=== PATIENT | female | born 1970 | race Asian ===

== ENCOUNTER → 2016-07-09 | Outpatient (CLI) | payer BC ==
[~2016-07-09] MED LIST: LANS15CA6 PO; LANS30CA12 PO
[2016-07-09 16:47] LABS: BASO % 0.8 %; BASO ABS # 0.04 K/uL (0-0.2); COMPLETE YES; EOS % 3.2 %; HEMATOCRIT 36.1 % (37-47); IG% 0.2 %; LYMPH ABS # 1.48 K/uL (1.2-3.4); MEAN CELL VOLUME 93.5 fL (80-100); MEAN CORPUSCULAR HEMOGLOBIN 31.6 pg (25-34); MEAN CORPUSCULAR HGB CONC 33.8 g/dl (32-36); MEAN PLATELET VOLUME 10.6 fL (7.4-10.4); MONO % 4.3 %; NEUT % 61.5 %; PLATELET COUNT 173 K/uL (130-400); RED BLOOD COUNT 3.86 M/uL (4.2-5.4); WHITE BLOOD COUNT 4.93 K/uL (4.8-10.8)
[2016-07-09 16:57] LABS: ALT/SGPT 34 U/L (12-78); AMYLASE 132 U/L (25-115); AST/SGOT 24 U/L (15-37); BLOOD UREA NITROGEN 15 mg/dl (7-18); BUN/CREATININE RATIO 22.3 (10-20); CALCIUM 8.8 mg/dl (8.5-10.1); CARBON DIOXIDE 30 mmol/L (21-32); CHLORIDE 105 mmol/L (98-107); CREATININE 0.67 mg/dl (0.60-1.20); GLUCOSE 90 mg/dl (70-99); POTASSIUM 3.9 mmol/L (3.5-5.1); SODIUM 143 mmol/L (136-145)
[2016-07-09 17:00] LABS: ALB/GLOB RATIO 1.3 (0.9-2); ALKALINE PHOSPHATASE 85 U/L (45-117)
== END | disposition home or self-care (01) ==
LOC: C.LABBC 14:24
PROVIDERS: ATTEND Internal Medicine Geriatric Medicine
DX: R10.11 Right upper quadrant pain (principal)

== ENCOUNTER → 2016-09-05 | Outpatient (CLI) | payer BC ==
[2016-09-05 15:00] LABS: CHOLESTEROL/HDL RATIO 2.1
== END | disposition home or self-care (01) ==
LOC: C.LABBC 12:01
PROVIDERS: ATTEND Internal Medicine
DX: Z13.220 Encounter for screening for lipoid disorders (principal)

== ENCOUNTER → 2016-09-06 | Outpatient (CLI) | payer BC ==
[2016-09-06 15:59] LABS: URINE APPEARANCE CLEAR (CLEAR); URINE BILIRUBIN NEG (NEG); URINE COLOR YELLOW; URINE NITRITE NEG (NEG); URINE PH 6.5 (4.5-7.5); URINE SPECIFIC GRAVITY 1.005 (1.000-1.030); UROBILINOGEN NEG (NEG)
[2016-09-06 16:21] LABS: MANUAL MICROSCOPIC REQUIRED? NO; REVIEW REQ? NO
== END | disposition home or self-care (01) ==
LOC: C.LABSPEC 15:32
PROVIDERS: ATTEND Physician Assistant
DX: R35.0 Frequency of micturition (principal); N89.8 Other specified noninflammatory disorders of vagina

== ENCOUNTER → 2016-09-06 | Outpatient (CLI) | payer BC | END | disposition home or self-care (01) | LOC: C.PAPS 09:55 | PROVIDERS: ATTEND Physician Assistant | DX: Z01.419 Encounter for gynecological examination (general) (routine) without abnormal findings (principal) ==

== ENCOUNTER → 2016-10-02 | Outpatient (CLI) | payer BC ==
[~2016-10-02] MED LIST changes: -LANS30CA12 PO
[2016-10-02 14:49] LABS: BASO % 0.6 %; BASO ABS # 0.02 K/uL (0-0.2); COMPLETE YES; EOS % 3.4 %; HEMATOCRIT 34.8 % (37-47); LYMPH % 31.2 %; LYMPH ABS # 1.11 K/uL (1.2-3.4); MEAN CELL VOLUME 94.8 fL (80-100); MEAN CORPUSCULAR HEMOGLOBIN 31.1 pg (25-34); MEAN CORPUSCULAR HGB CONC 32.8 g/dl (32-36); MEAN PLATELET VOLUME 10.9 fL (7.4-10.4); MONO % 5.9 %; NEUT % 58.9 %; PLATELET COUNT 150 K/uL (130-400); RED BLOOD COUNT 3.67 M/uL (4.2-5.4); WHITE BLOOD COUNT 3.56 K/uL (4.8-10.8)
== END | disposition home or self-care (01) ==
LOC: C.LAB1850 12:36
PROVIDERS: ATTEND Obstetrics & Gynecology
DX: Z01.818 Encounter for other preprocedural examination (principal)

== ENCOUNTER → 2016-10-07 | Day surgery (SDC) | payer BC ==
[2016-09-27 11:08] VITALS: BMI 17.0
[~2016-10-07] VITALS: Ht 157.5 cm; Wt 42.3 kg
[~2016-10-07] MED LIST changes: +LIDOCAINE HCL 2% 2 ML VIAL (20MG/ML) ONE; +MIDAZOLAM HCL 1 MG/ML 2ML VIAL ONE; +ONDANSETRON INJ 2 MG/ML 2 ML VIAL ONE; +PROPOFOL IV EMULSION 10 MG/ML 20 ML VIAL IV ONE; +SODIUM CHLORIDE 0.9% 500ML 500 ML IV ONE
[2016-10-07 09:56] VITALS: TEMP 36.7
[2016-10-07 09:57] VITALS: Ht 157.5 cm; Wt 42.3 kg
--- NOTE | 2016-10-07 10:50 | Endo History and Physical ---
History & Physical Date of Service: Oct 07, 2016. Chief Complaint: ABNORMAL WEIGHT LOSS Referring Physician: DR ROSENDO DELVALLE History of Present Illness 46 yo female who presents for colonoscopy secondary to abnormal weight loss. Past Medical History Reflux Past Surgical History Hx Cardiac Surgery: No Hx Internal Defibrillator: No Hx Pacemaker: No Hx Abdominal Surgery: No Hx of Implantable Prosthesis: No Hx Post-Op Nausea and Vomiting: No Hx Cancer Surgery: No Hx Thoracic Surgery: No Hx Orthopedic: No Hx Urinary Tract Surgery: No Family History None Social History Smoking Status: Never Smoker Hx Substance Use: No Hx Alcohol Use: No Allergies Coded Allergies: Penicillin G (Verified Allergy, Unknown, "BLACK PART OF EYE WENT AWAY" PER MOTHER, 09/27/16) Current Medications Reported Home Medications Medications Dose Route/Sig Max Daily Dose Days Date Category Prevacid (Lansoprazole) 15 Mg Capcr 15 Mg PO QAM 09/18/16 Reported Vital Signs Weight (Kilograms): 42.27 Height (Feet): 5 Height (Inches): 2 Date Time Temp Pulse Resp B/P Pulse Ox O2 Delivery O2 Flow Rate FiO2 10/07/16 09:56 36.7 62 18 111/67 95 Room Air Physical Exam General Appearance: WD/WN, no apparent distress Respiratory/Chest: Auscultation: breath sounds normal Cardiovascular: Heart Auscultation: RRR Abdomen: Bowel Sounds: normal Inspection & Palpation: soft, non-distended, no tenderness, guarding & rebound Assessment and Plan Assessment: 46 yo female who presents for colonoscopy secondary to abnormal weight loss. Plan: Proceed with colonoscopy.
--- NOTE | 2016-10-07 11:13 | Discharge Instructions ---
Endoscopy Patient Instructions Date / Procedure(s) Performed Oct 07, 2016. Colonoscopy Allergy Information Coded Allergies: Penicillin G (Verified Allergy, Unknown, "BLACK PART OF EYE WENT AWAY" PER MOTHER, 09/27/16) Discharge Date / Findings Oct 07, 2016. Colon polyp Random colon biopsies Internal hemorrhoids Medication Instructions OK to resume all medications today as prescribed Reported Home Medications Medications Dose Route/Sig Max Daily Dose Days Date Category Prevacid (Lansoprazole) 15 Mg Capcr 15 Mg PO QAM 09/18/16 Reported Provider Instructions Activity Restrictions - No exercising or heavy lifting for 24 hours. - Do not drink alcohol the day of the procedure. - Do not drive a car or operate machinery until the day after the procedure. - Do not make any important decisions or sign important papers in 24 hours after the procedure. Following Day: - Return to full activity which may include returning to work/school. Diet Start your diet with liquids and light foods (jello, soup, juice, toast). Then eat your usual diet if not nauseated. Treatment For Common After Affects For mild abdominal pain, bloating, or excessive gas: - Rest - Eat lightly - Lie on right side Follow-Up Information Follow-up with DR ROSENDO DELVALLE as scheduled Anesthesia Information What You Should Know You have had a procedure that required some medicine to reduce anxiety and discomfort. This treatment is called moderate sedation. After receiving the treatment, you may be sleepy, but you will be able to breathe on your own. The effects of the treatment may last for several hours. Follow these instructions along with Activity/Diet recommendations noted above: * Do NOT do anything where dizziness or clumsiness would be dangerous. * Rest quietly at home today, then you can be up and about tomorrow. * Have a responsible person stay with you the rest of today. * You may have had an I.V. today. If so, you may take the dressing off later today. Recommendations Call your doctor if: * Trouble breathing * Continuous vomiting for more than 24 hours * Temperature above 101 degrees * Severe abdominal pain or bloating * Pain not relieved by pain medicine ordered * There is increased drainage or redness from any incision * A large amount of rectal bleeding greater than 2-3 tablespoons. (If you had a polyp/s removed or have hemorrhoids, a small amount of blood - from the rectum is to be expected.) * You have any unanswered questions or concerns. IN THE EVENT OF A SERIOUS EMERGENCY, GO TO THE NEAREST EMERGENCY ROOM Your discharge instructions were prepared by provider Antelmo Salinas. Patient Instructions Signature Page Sammie Palencia Patient (or Guardian) Signature/Date: I have read and understand the instructions given to me by my caregivers. Caregiver/RN/Doctor Signature/Date: The above-named patient and/or guardian has received patient instructions on this date. + Original Patient Signature Page (only) stays with chart. Please make copy for patient.
--- NOTE | 2016-10-07 11:23 | GI REPORT ---
Procedure Date: 10/07/2016 9:55 AM THIS REPORT HAS BEEN AMENDED Addendum Number: 1 Addendum Date: 10/07/2016 12:07:23 PM The ascending colon polyp removed during this procedure, was not obtained for histologic evaluation. Procedure: Colonoscopy Indications: Weight loss Medicines: Monitored Anesthesia Care Complications: No immediate complications. Estimated Blood Loss: Estimated blood loss: none. Procedure: Pre-Anesthesia Assessment: - Prior to the procedure, a History and Physical was performed, and patient medications and allergies were reviewed. The patient's tolerance of previous anesthesia was also reviewed. The risks and benefits of the procedure and the sedation options and risks were discussed with the patient. All questions were answered, and informed consent was obtained. Prior Anticoagulants: The patient has taken no previous anticoagulant or antiplatelet agents. ASA Grade Assessment: II - A patient with mild systemic disease. After reviewing the risks and benefits, the patient was deemed in satisfactory condition to undergo the procedure. After I obtained informed consent, the scope was passed under direct vision. Throughout the procedure, the patient's blood pressure, pulse, and oxygen saturations were monitored continuously. The scope was introduced through the anus and advanced to the terminal ileum. The colonoscopy was performed without difficulty. The patient tolerated the procedure well. The quality of the bowel preparation was good. The terminal ileum, ileocecal valve, appendiceal orifice, and rectum were photographed. Findings: A 5 mm polyp was found in the ascending colon. The polyp was sessile. The polyp was removed with a hot snare. Resection and retrieval were complete. Several random biopsies were obtained with cold forceps for histology in the entire colon. Non-bleeding internal hemorrhoids were found during retroflexion. The hemorrhoids were small. Impression: - One 5 mm polyp in the ascending colon, removed with a hot snare. Resected and retrieved. - Non-bleeding internal hemorrhoids. - Several random biopsies were obtained in the entire colon. Recommendation: - Resume previous diet. - Continue present medications. - Repeat colonoscopy for surveillance based on pathology results. - Return to primary care physician as previously scheduled. Antelmo Pfefifer BradDO 10/07/2016 11:22:15 AM This report has been signed electronically. Note Initiated On: 10/07/2016 9:55 AM I attest to the content of the Intraoperative Record and orders documented therein, exceptions below Antelmo Salinas DO 10/07/2016 12:07:51 PM This report has been signed electronically.
--- NOTE | 2016-10-07 11:35 | Anesthesiology Progress Note ---
Anesthesia Post Op Note Date & Time Oct 07, 2016 at 11:34 Vital Signs Pain Intensity: 0 Vital Signs Past 12 Hours Date Time Temp Pulse Resp B/P Pulse Ox O2 Delivery O2 Flow Rate FiO2 10/07/16 11:28 70 18 99/58 99 Room Air 10/07/16 11:15 64 16 98/53 100 Room Air 10/07/16 09:56 36.7 62 18 111/67 95 Room Air Notes Mental Status: alert / awake / arousable, participated in evaluation Pt Amnestic to Procedure: Yes Nausea / Vomiting: adequately controlled Pain: adequately controlled Airway Patency, RR, SpO2: stable & adequate BP & HR: stable & adequate Hydration State: stable & adequate Anesthetic Complications: no major complications apparent
[2016-10-07 11:43] VITALS: BP 104/58; PULSE 67; O2SAT 100
== END | disposition home or self-care (01) ==
LOC: C.GI 09:24
PROVIDERS: ATTEND Internal Medicine
DX: R63.4 Abnormal weight loss (principal); D12.2 Benign neoplasm of ascending colon; K64.8 Other hemorrhoids; K21.9 Gastro-esophageal reflux disease without esophagitis

== ENCOUNTER → 2016-10-14 | Day surgery (SDC) | payer BC ==
[2016-09-18 09:53] VITALS: Ht 157.5 cm; Wt 43.2 kg
--- NOTE | 2016-10-05 11:07 | HISTORY & PHYSICAL EXAMINATION ---
DATE OF ADMISSION: 10/14/2016 CHIEF COMPLAINT: Embedded IUD. HISTORY OF PRESENT ILLNESS: The patient is a 46-year-old female, 2, para 2, with an IUD in place. The patient is believed to have a ParaGard IUD in place since 2007. She is perimenopausal with her last period having been 12/2015. She was seen for an annual [employer] exam on 09/06/2016 and the lower pole of the IUD visible at the cervical os. Strings were grasped and an attempt was made to remove the IUD. It was not possible to remove it. Ultrasound was then performed and this showed that at least 1 arm of the IUD appears to be embedded in the anterior wall of the uterus. The patient is now for removal of the IUD by hysteroscopy. PAST MEDICAL HISTORY: ALLERGIES: TO PENICILLIN. MEDICATIONS: The patient takes lansoprazole 15 mg daily. ILLNESSES: The patient does have GERD. She also has eczema and suffers with anxiety. PAST MEDICAL HISTORY: She has a history of iron deficiency anemia. Also a history of irritable bowel syndrome. SURGERIES: She has had a needle biopsy of her breast. FAMILY HISTORY: Her mother has a history of breast cancer and hypertension. Her sister has also had breast cancer. SOCIAL HISTORY: The patient is . She denies smoking cigarettes or drinking alcohol. PHYSICAL EXAMINATION: VITAL SIGNS: Height 5 feet 1-1/2 inches, weight 91.3 pounds, blood pressure 98/62. HEENT: Grossly within normal limits. NECK: Supple without masses. CHEST: Her lungs are clear without wheezing. HEART: Regular rate and rhythm. No murmurs, gallops or rubs. ABDOMEN: Soft and nontender with no masses. PELVIC: External genitalia normal. Vagina pink and stimulated. Cervix: IUD strings were noted at the os. Uterus within normal limit size, nontender. Adnexa nontender with no masses palpable. EXTREMITIES: No cyanosis, clubbing or edema. IMPRESSION: Malpositioned intrauterine device. Cannot remove the device in the office. PLAN: The patient is for hysteroscopy, dilation of the cervix and curettage, with possible removal of polyp/lesion and removal of IUD. The patient is aware of the risks of infection, bleeding, perforation of the uterus which might require additional surgery or treatment, as well as hospitalization and risk of anesthesia. The patient is aware of the risk of possible breakage of the IUD with the attempt at removal. Also aware that additional surgery might be necessary to remove the IUD. MTDD
[~2016-10-14] VITALS: Ht 157.5 cm; Wt 43.2 kg
[~2016-10-14] MED LIST changes: +ATROPINE SULFATE 0.1 MG/ML 5ML SYR IV PRN; +DEXAMETHASONE SOD INJ 4 MG/ML VIAL ONE; +EpHEDrine SULFATE INJ 50 MG/ML AMP IV PRN; +EpHEDrine SULFATE INJ 50 MG/ML AMP ONE; +FENTANYL CITRATE INJ 50 MCG/1 ML 2 ML VIAL IV PRN; +FENTANYL CITRATE INJ 50 MCG/1 ML 2 ML VIAL ONE; +IBUPROFEN 600 MG TAB PO PRN; +LACTATED RINGER'S 1000ML 1,000 ML IV SCH; +NALOXONE HCL 0.4 MG/1 ML VIAL/CARP IV PRN; +ONDANSETRON INJ 2 MG/ML 2 ML VIAL IV PRN; +PROMETHAZINE HCL INJ 12.5 MG in SODIUM CHLORIDE 0.9% 50ML 50 ML IV PRN; +SODIUM CHLORIDE 0.9% 1000ML 1,000 ML IV SCH; -SODIUM CHLORIDE 0.9% 500ML 500 ML IV ONE
--- NOTE | 2016-10-14 08:54 | History & Physical Bridge - SC ---
H&P Re-Evaluation Bridge Note: I have examined the patient, reviewed the History & Physical and in the interval since the performance of the History & Physical I have noted the following changes of clinical significance: No changes noted
--- NOTE | 2016-10-14 09:48 | [facility] Post Operative Brief Note ---
Immediate Operative Summary Operative Date October 14, 2016. Pre-Operative Diagnosis Malpositioned IUD Post-Operative Diagnosis Embedded Paragard IUD Procedure(s) Performed Dilatation, Hysteroscopy, Removal Of Intra Uterine Device Surgeon Dr. Laurent Rod Puller Surgeon(s) None Estimated Blood Loss 25 ml Findings See dictated note. Specimens A.) Embedded IUD Complication(s) None Disposition Recovery Room / PACU
--- NOTE | 2016-10-14 09:59 | Discharge Instructions-SurgCtr ---
Discharge Instructions Date of Service October 14, 2016. Visit Reason for Visit: Malpositioned Iud Discharge Discharge Diagnosis / Problem: S/P Hysteroscopy, dilation of cervix and removal of embedded Paragard IUD Discharge Goals Goal(s): Therapeutic intervention Activity Recommendations Activity Limitations: per Instructions/Follow-up section Anesthesia . Post Anesthesia Instructions: If you have had General Anesthesia or IV Sedation: * Do not drive today. * Resume driving when surgeon permits. * Do not make important decisions or sign legal documents today. * Call surgeon for: 1. Temperature elevations greater than 101 degrees F. 2. Uncontrollable pain. 3. Excessive bleeding. 4. Persistent nausea and vomiting. 5. Medication intolerance (nausea, vomiting or rash). * For nausea and vomiting use only clear liquids such as: tea, soda, bouillon until nausea subsides, then gradually increase diet as tolerated. * If you have any concerns or questions, call your surgeon's office. If physician is unavailable and it is an emergency, call 911 or go to the nearest emergency room. . Instructions / Follow-Up Instructions / Follow-Up ACTIVITY RECOMMENDATIONS: * Avoid tampons, douching, hot tubs, pools, and intercourse until bleeding has stopped. * May shower as usual. * No strenuous activity for 24-48 hours. After 24-48 hours, you may do anything you feel like doing (driving and sports are okay). SPECIAL CARE INSTRUCTIONS: Special Diet: * Mild nausea may occur in the immediate post-operative period. * Take clear liquids such as tea, cola or bouillon until all nausea has subsided; you may then resume your normal diet. Special Care: * Light bleeding and vaginal spotting can last from a few days to 2 weeks. Call your doctor if bleeding becomes heavier than the heaviest part of your period. * Check your temperature twice a day for one week. If it goes above 100.4 degrees Fahrenheit (38.0 Celsius), notify your doctor. Call if you have persistent severe cramping or develop a foul vaginal discharge. * Call your doctor's office for an appointment for 2-4 weeks after your surgery. [phone] Laurent. FOLLOW-UP VISIT: Call your doctor's office for an appointment for 2-4 weeks after your surgery. Diet Recommendations Home Diet: resume previous diet Procedures Procedures Performed: Dilatation, Hysteroscopy, Removal Of Intra Uterine Device Pending Studies Studies pending at discharge: yes List of pending studies: The IUD was sent to pathology. Medical Emergencies . Who to Call and When: Medical Emergencies: If at any time you feel your situation is an emergency, please call 911 immediately. . Non-Emergent Contact Non-Emergency issues call your: Medicine And Health Service Manager Call Non-Emergent contact if: temperature is above 100.5 . . "Provider Documentation" section prepared by Anika Laurent. .
--- NOTE | 2016-10-14 10:16 | OPERATIVE REPORT ---
DATE OF OPERATION: 10/14/2016 PREOPERATIVE DIAGNOSIS: Malpositioned intrauterine device. POSTOPERATIVE DIAGNOSIS: Embedded ParaGard intrauterine device. PROCEDURES: Dilation of the cervix, hysteroscopy and removal of intrauterine device. SURGEON: Dr. Anika Laurent. ANESTHESIA: General. CONSTRUCTION LABORER: Butch Paredes MD DESCRIPTION OF PROCEDURE: The patient was taken to the operating room, where general anesthesia was administered. After an adequate level was obtained, she was placed in dorsal lithotomy position. Vulva, vagina, and cervix were prepped with Betadine solution. The patient was draped. A Sanchez retractor was placed in the posterior fornix of the vagina. The anterior lip of the cervix was grasped with a single tooth tenaculum. It should be noted that the uterus was normal size, midline to retroverted. The lower pole of the IUD was visible and palpable at the cervical os. IUD strings were grasped with a hemostat. Gentle traction was placed on the strings and the IUD could not be removed. The cervix was then serially dilated up to approximately 23. Hysteroscope was then used to visualize the position of the IUD. Photos were taken. The shaft of the IUD was in the cervical and endometrial canal as usual. One arm of the IUD was noted to be in position in the left upper portion of the endometrial cavity. It was not possible to see the right arm of the IUD as it was embedded in the anterior wall of the uterus. The entire arm appeared to be embedded. A small hemostat was then used after the hysteroscope was removed. It was possible to grasp the mid and upper portion of the IUD with it. The IUD was removed, but only the shaft of the IUD. The arm of the IUD that was in the left side of the endometrial cavity was then removed. A small portion of the remaining arm was visible protruding from the anterior wall of the uterus. With the grasper through the small operative scope, it was possible for me to grasp the embedded arm of the IUD and pull it out of the myometrium into the endometrial cavity and then out of the uterus. Afterwards, the pieces of the IUD were examined and it appeared that the entire IUD had been successfully removed. The pieces of IUD will be sent to pathology. Blood loss for the entire procedure was no more than 25 mL. The patient tolerated the procedure well and was taken to the recovery room in good condition. I attest to the content of the Intraoperative Record and any orders documented therein. Any exceptions are noted below. YAIR
--- NOTE | 2016-10-14 11:02 | Anesthesia Progress Nt - [facility] ---
Anesthesia Post Op Note Date & Time October 14, 2016 at 11:01 Vital Signs Pain Intensity: 0 Vital Signs Past 12 Hours Date Time Temp Pulse Resp B/P Pulse Ox O2 Delivery O2 Flow Rate FiO2 10/14/16 10:47 47 14 100 10/14/16 10:47 47 14 10/14/16 10:45 117/76 10/14/16 10:42 36.6 50 16 122/75 100 Room Air 10/14/16 10:42 46 15 100 10/14/16 10:42 46 15 10/14/16 10:41 52 16 100 10/14/16 10:41 51 16 10/14/16 10:40 122/75 10/14/16 10:36 48 15 100 10/14/16 10:36 48 15 10/14/16 10:35 128/79 10/14/16 10:31 46 15 10/14/16 10:31 46 15 100 10/14/16 10:30 133/76 10/14/16 10:27 47 16 100 10/14/16 10:27 47 16 10/14/16 10:25 109/72 10/14/16 10:22 47 14 10/14/16 10:22 47 14 100 10/14/16 10:20 124/74 10/14/16 10:17 49 17 100 10/14/16 10:17 49 17 10/14/16 10:16 47 14 10/14/16 10:16 47 14 100 10/14/16 10:15 132/77 10/14/16 10:11 49 14 100 10/14/16 10:11 48 14 10/14/16 10:10 124/81 10/14/16 10:06 48 13 100 10/14/16 10:06 48 13 10/14/16 10:05 117/79 10/14/16 10:01 49 14 100 10/14/16 10:01 49 14 10/14/16 10:00 127/75 10/14/16 09:56 52 17 127/77 100 10/14/16 09:56 36.6 54 12 127/77 100 Diffusion Mask 15 10/14/16 09:56 52 17 10/14/16 08:11 36.4 58 16 101/66 100 Room Air Notes Mental Status: alert / awake / arousable, participated in evaluation Pt Amnestic to Procedure: Yes Nausea / Vomiting: adequately controlled Pain: adequately controlled Airway Patency, RR, SpO2: stable & adequate BP & HR: stable & adequate Hydration State: stable & adequate Anesthetic Complications: no major complications apparent
[2016-10-14 11:10] VITALS: TEMP 36.4
[2016-10-14 11:26] VITALS: BP 109/66; PULSE 51; O2SAT 100
== END | disposition home or self-care (01) ==
LOC: X.SURG 08:01
PROVIDERS: ATTEND Obstetrics & Gynecology
DX: Z30.432 Encounter for removal of intrauterine contraceptive device (principal); K21.9 Gastro-esophageal reflux disease without esophagitis; D64.9 Anemia, unspecified; Z85.3 Personal history of malignant neoplasm of breast; Z82.49 Family history of ischemic heart disease and other diseases of the circulatory system

== ENCOUNTER 2017-02-06 22:22 | Emergency (ER) | payer BC ==
[~2017-02-06] VITALS: Ht 160 cm; Wt 43.9 kg
[~2017-02-06 22:22] MED LIST changes: -ATROPINE SULFATE 0.1 MG/ML 5ML SYR IV PRN; -DEXAMETHASONE SOD INJ 4 MG/ML VIAL ONE; -EpHEDrine SULFATE INJ 50 MG/ML AMP IV PRN; -EpHEDrine SULFATE INJ 50 MG/ML AMP ONE; -FENTANYL CITRATE INJ 50 MCG/1 ML 2 ML VIAL IV PRN; -FENTANYL CITRATE INJ 50 MCG/1 ML 2 ML VIAL ONE; -IBUPROFEN 600 MG TAB PO PRN; -LACTATED RINGER'S 1000ML 1,000 ML IV SCH; -LIDOCAINE HCL 2% 2 ML VIAL (20MG/ML) ONE; -MIDAZOLAM HCL 1 MG/ML 2ML VIAL ONE; -NALOXONE HCL 0.4 MG/1 ML VIAL/CARP IV PRN; -ONDANSETRON INJ 2 MG/ML 2 ML VIAL IV PRN; -ONDANSETRON INJ 2 MG/ML 2 ML VIAL ONE; -PROMETHAZINE HCL INJ 12.5 MG in SODIUM CHLORIDE 0.9% 50ML 50 ML IV PRN; -PROPOFOL IV EMULSION 10 MG/ML 20 ML VIAL IV ONE; -SODIUM CHLORIDE 0.9% 1000ML 1,000 ML IV SCH
[2017-02-06 22:28] VITALS: TEMP 36.4; Ht 160 cm; Wt 43.9 kg
--- NOTE | 2017-02-06 23:29 | EMERGENCY ROOM VISIT NOTE ---
History Report prepared by Nicole: Juan Jose Priest Under the Supervision of: Dr. Lachelle Morillo D.O. First contact with patient: 22:36 Chief Complaint: CARDIAC ASSESSMENT Stated Complaint: CHEST PAIN Nursing Triage Summary: Patient states, "My heart does not feel like it is beating as strong as usual." History of Present Illness The patient is a 46 year old female who presents to the Emergency Room with complaints of constant, sharp, left-sided chest tightness beginning 8 hours ago. The patient states that she was on her feet moving around and developed her symptoms. She reports that she checked her pulse, and it did not feel as strong as her baseline. The patient notes that she did not try lying down to alleviate her symptoms. She states it does not radiate into her back, but she does feel tightness in her left shoulder. The patient reports that two days ago she had a cramping sensation in her right calf. She notes that she has a history of cramps, but this one did not completely go away. The patient states that she has a history of GERD, and she is showing symptoms of her GERD. She reports that her breath smells and she has not appetite, but she can drink fluids. The patient notes that she did go on a long care ride last week that accumulated around 10 hours of driving. She denies, dizziness, lightheadedness, nauseous, vomiting, edema to her legs, jaw pain, neck pain, stuffy nose, rhinorrhea, fever, diarrhea, trouble urination, joint pain, and a history of smoking. Source of History: patient Onset: 8 hours ago Position: chest (left) Quality: sharp, other (tihgtness) Timing: constant Associated Symptoms: No neck pain, No nausea, No vomiting Note: Associated symptoms: left shoulder tightness, cramping in her right calf, bad breath, no appetite Denies: rhinorrhea, difficultly urinating, joint, jaw pain, stuffy nose, dizziness, lightheadedness, edema to her legs Review of Systems See HPI for pertinent positives & negatives. A total of 10 systems reviewed and were otherwise negative. Past Medical & Surgical Medical Problems: (1) GERD (gastroesophageal reflux disease) Family History Patient reports no known family medical history. Social History Smoking Status: Never Smoker Marital Status: Housing Status: lives with significant other Occupation Status: other (housewife) Current/Historical Medications No Active Prescriptions or Reported Meds Allergies Coded Allergies: Penicillin G (Verified Allergy, Unknown, "BLACK PART OF EYE WENT AWAY" PER MOTHER, 10/14/16) Physical Exam Vital Signs Date Time Temp Pulse Resp B/P (MAP) Pulse Ox O2 Delivery O2 Flow Rate FiO2 02/07/17 00:49 65 119/75 71 114/75 66 115/72 02/07/17 00:27 65 16 119/75 98 02/06/17 22:58 58 02/06/17 22:28 36.4 60 18 148/84 100 Room Air Physical Exam GENERAL: alert, well appearing, well nourished, no distress, non-toxic EYE EXAM: normal conjunctiva, PERRL and EOM's grossly intact OROPHARYNX: no exudate, no erythema, lips, buccal mucosa, and tongue normal and mucous membranes are mildly dry. NECK: supple, no nuchal rigidity, no adenopathy, non-tender LUNGS: Clear to auscultation. Normal chest wall mechanics HEART: no murmurs, S1 normal and S2 normal CHEST: no reproducible chest tenderness ABDOMEN: abdomen soft, non-tender, normo-active bowel sounds, no masses, no rebound or guarding. BACK: Back is symmetrical on inspection and there is no deformity, no midline tenderness, no CVA tenderness. SKIN: no rashes and no bruising UPPER EXTREMITIES: upper extremities are grossly normal. LOWER EXTREMITIES: No pitting edema. NEURO EXAM: Normal sensorium, cranial nerves II-XII grossly intact, normal speech, no gross weakness of arms, no gross weakness of legs. Medical Decision & Procedures ER Provider Diagnostic Interpretation: Radiology results have been interpreted by the radiologist and reviewed by me. US VENOUS RIGHT LOWER EXTREMITY: No DVT Radiologist: Yuniel Thacker MD Study ready at [id number] and initial results transmitted at 7744 X-ray: I interpreted the following studies. Chest: A single, portable view study of the chest was reviewed and was negative for focal infiltrate, CM, evidence of CHF, effusion, pneumothorax, or wide mediastinum. Laboratory Results 02/06/17 22:50 Red Blood Count 4.25, Mean Corpuscular Volume 92.9, Mean Corpuscular Hemoglobin 31.8, Mean Corpuscular Hemoglobin Concent 34.2, Mean Platelet Volume 10.6, Neutrophils (%) (Auto) 60.5, Lymphocytes (%) (Auto) 33.7, Monocytes (%) (Auto) 3.3, Eosinophils (%) (Auto) 1.9, Basophils (%) (Auto) 0.4, Neutrophils # (Auto) 2.93, Lymphocytes # (Auto) 1.63, Monocytes # (Auto) 0.16, Eosinophils # (Auto) 0.09, Basophils # (Auto) 0.02 02/06/17 22:50 Test 02/06/17 22:50 White Blood Count 4.84 K/uL (4.8-10.8) Red Blood Count 4.25 M/uL (4.2-5.4) Hemoglobin 13.5 g/dL (12.0-16.0) Hematocrit 39.5 % (37-47) Mean Corpuscular Volume 92.9 fL (80-100) Mean Corpuscular Hemoglobin 31.8 pg (25-34) Mean Corpuscular Hemoglobin Concent 34.2 g/dl (32-36) Platelet Count 170 K/uL (130-400) Mean Platelet Volume 10.6 fL (7.4-10.4) Neutrophils (%) (Auto) 60.5 % Lymphocytes (%) (Auto) 33.7 % Monocytes (%) (Auto) 3.3 % Eosinophils (%) (Auto) 1.9 % Basophils (%) (Auto) 0.4 % Neutrophils # (Auto) 2.93 K/uL (1.4-6.5) Lymphocytes # (Auto) 1.63 K/uL (1.2-3.4) Monocytes # (Auto) 0.16 K/uL (0.11-0.59) Eosinophils # (Auto) 0.09 K/uL (0-0.5) Basophils # (Auto) 0.02 K/uL (0-0.2) RDW Standard Deviation 40.7 fL (36.4-46.3) RDW Coefficient of Variation 12.0 % (11.5-14.5) Immature Granulocyte % (Auto) 0.2 % Immature Granulocyte # (Auto) 0.01 K/uL (0.00-0.02) D-Dimer 270 ug/L FEU (0-500) Anion Gap 5.0 mmol/L (3-11) Est Creatinine Clear Calc Drug Dose 66.0 ml/min Estimated GFR () 113.7 Estimated GFR (Non- 98.1 BUN/Creatinine Ratio 17.5 (10-20) Calcium Level 9.1 mg/dl (8.5-10.1) Total Bilirubin 1.1 mg/dl (0.2-1) Aspartate Amino Transf (AST/SGOT) 31 U/L (15-37) Alanine Aminotransferase (ALT/SGPT) 30 U/L (12-78) Alkaline Phosphatase 100 U/L (45-117) Troponin I < 0.015 ng/ml (0-0.045) Total Protein 8.7 gm/dl (6.4-8.2) Albumin 4.7 gm/dl (3.4-5.0) Globulin 4.0 gm/dl (2.5-4.0) Albumin/Globulin Ratio 1.2 (0.9-2) Thyroid Stimulating Hormone (TSH) 8.660 uIu/ml (0.300-4.500) Human Chorionic Gonadotropin, Qual NEG (NEG) Laboratory results per my review. ECG Indication: chest pain Rate (beats per minute): 52 Rhythm: sinus bradycardia Findings: no acute ischemic change, no ectopy, other (Normal axis and intervals ) ED Course 2305: The patient was evaluated in room B05. A complete history and physical exam was performed. 0018: Ordered Maalox Sup 15ml PO - The patient refused. 0026: I reevaluated the patient and updated her of her current exam findings. She states that she has had one recurrent episode since she has been in the ED. Medical Decision Differential diagnoses includes but is not limited to acute coronary syndrome, myocardial infarction, pericarditis, pulmonary embolus, aortic dissection, pneumonia, pneumothorax, musculoskeletal, shingles, esophageal, dysrhythmia HEART score 0 Patient well-appearing here despite complaints, negative labs, reassuring chest x-ray, lower extremity Doppler negative. Patient offered GI medications as well as anti-inflammatories for pain and she refused. Discussed with patient possible differential diagnosis, symptoms to watch and return for, follow-up with family doctor, she verbalized understanding was agreeable with plan. Patient recently stopped taking lansoprazole, discussed possible component of GERD/reflux and GI etiology of her pain. Discussed avoidance of acidic foods in her diet as a precaution. Doubt dissection, PE, tamponade, effusion, pneumothorax, no evidence of infiltrate, doubt occult infectious etiology, patient did not appear acutely anxious, no evidence of trauma or change in activity. She ambulated with a steady gait and tolerated by mouth at bedside prior to discharge. Patient made aware of mild hypokalemia and potassium intake in diet. Impression Primary Impression: Chest pain Additional Impression: Hypokalemia Scribe Attestation The scribe's documentation has been prepared under my direction and personally reviewed by me in its entirety. I confirm that the note above accurately reflects all work, treatment, procedures, and medical decision making performed by me. Departure Information Dispostion Home / Self-Care Prescriptions No Active Prescriptions or Reported Meds Referrals Jozef Morley M.D. (PCP) Patient Instructions My [facility] Additional Instructions Please call and follow up with your family doctor. Please continue to monitor for any change in your symptoms. If you develop recurrent and worsening pain, develop trouble breathing, fevers, dizziness, vomiting, or you have any other new concerns, please return to the emergency room. Problem Qualifiers Primary Impression: Chest pain Chest pain type: unspecified Qualified Codes: R07.9 - Chest pain, unspecified
[2017-02-07 00:18] LABS: BASO % 0.4 %; BASO ABS # 0.02 K/uL (0-0.2); COMPLETE YES; EOS % 1.9 %; HEMATOCRIT 39.5 % (37-47); IG% 0.2 %; LYMPH % 33.7 %; LYMPH ABS # 1.63 K/uL (1.2-3.4); MEAN CELL VOLUME 92.9 fL (80-100); MEAN CORPUSCULAR HEMOGLOBIN 31.8 pg (25-34); MEAN CORPUSCULAR HGB CONC 34.2 g/dl (32-36); MEAN PLATELET VOLUME 10.6 fL (7.4-10.4); MONO % 3.3 %; NEUT % 60.5 %; PLATELET COUNT 170 K/uL (130-400); RED BLOOD COUNT 4.25 M/uL (4.2-5.4); WHITE BLOOD COUNT 4.84 K/uL (4.8-10.8)
[2017-02-07] MEDS ORDERED: ALUMINUM/MAGNESIUM SUSP 30 ML UDC PO STA (00:18)
[2017-02-07 00:20] LABS: PREG INTERNAL NEGATIVE QC NEG CLEAR BACKGROUND; PREG INTERNAL POSITIVE QC POS CONTROL LINE
[2017-02-07 00:25] LABS: ALT/SGPT 30 U/L (12-78); BLOOD UREA NITROGEN 13 mg/dl (7-18); BUN/CREATININE RATIO 17.5 (10-20); CALCIUM 9.1 mg/dl (8.5-10.1); CARBON DIOXIDE 32 mmol/L (21-32); CHLORIDE 104 mmol/L (98-107); CREATININE 0.73 mg/dl (0.60-1.20); GLUCOSE 89 mg/dl (70-99); POTASSIUM 3.3 mmol/L (3.5-5.1); SODIUM 141 mmol/L (136-145)
[2017-02-07 00:27] VITALS: O2SAT 98
[2017-02-07 00:36] LABS: ALB/GLOB RATIO 1.2 (0.9-2); ALKALINE PHOSPHATASE 100 U/L (45-117); AST/SGOT 31 U/L (15-37)
[2017-02-07 00:49] VITALS: BP 115/72; PULSE 66
--- NOTE | 2017-02-07 07:13 | DIAGNOSTIC IMAGING REPORT ---
RIGHT LOWER EXTREMITY VENOUS DOPPLER HISTORY: calf pain Right COMPARISON STUDY: None. FINDINGS: There is normal compressibility, flow, and augmentation within the right lower extremity deep venous system. IMPRESSION: No DVT within the right lower extremity Electronically signed by: Rock Tejada M.D. 02/07/2017 7:12 AM Dictated Date/Time: 02/07/2017 7:12 AM
--- NOTE | 2017-02-07 07:35 | DIAGNOSTIC IMAGING REPORT ---
CHEST ONE VIEW PORTABLE CLINICAL HISTORY: Chest pain. COMPARISON STUDY: Chest radiograph August 18, 2012. FINDINGS: Lung volumes are normal. There is no pneumothorax or pleural effusion. Nipple shadows project over the lower lungs. No consolidation is identified. Pulmonary vascularity is normal. Cardiomediastinal silhouette is normal. Appearance of the chest is unchanged. IMPRESSION: No acute cardiopulmonary findings. Electronically signed by: Meño Ferrer M.D. 02/07/2017 7:34 AM Dictated Date/Time: 02/07/2017 7:33 AM
== END 2017-02-07 01:07 | disposition home or self-care (01) ==
LOC: C.EDB 22:23
DX: R07.9 Chest pain, unspecified (principal); E87.6 Hypokalemia; K21.9 Gastro-esophageal reflux disease without esophagitis

== ENCOUNTER → 2017-03-27 | Outpatient (CLI) | payer BC ==
--- NOTE | 2017-03-27 14:45 | DIAGNOSTIC IMAGING REPORT ---
RIGHT WRIST 5 VIEWS HISTORY: Right wrist pain. M77.8 Tendinitis of [id number] COMPARISON: None. FINDINGS: There is no fracture or dislocation. Mild soft tissue swelling along the ulnar side of the wrist. Mild cartilage space narrowing at the radiocarpal joint and tiny marginal osteophytes consistent with degenerative change. The scaphoid appears intact. No radiopaque foreign bodies. IMPRESSION: No fractures. Mild soft tissue swelling along the ulnar side of the wrist. Electronically signed by: Rock Tejada M.D. 03/27/2017 2:44 PM Dictated Date/Time: 03/27/2017 2:41 PM
== END | disposition home or self-care (01) ==
LOC: C.RADBC 14:23
PROVIDERS: ATTEND Physician Assistant Medical
DX: M77.8 Other enthesopathies, not elsewhere classified (principal)

== ENCOUNTER → 2017-06-06 | Outpatient (CLI) | payer BC ==
--- NOTE | 2017-06-10 15:28 | MAMMOGRAPHY REPORT ---
BILATERAL DIGITAL SCREENING MAMMOGRAM TOMOSYNTHESIS WITH CAD: 06/06/2017 CLINICAL HISTORY: Routine screening. Patient has no complaints. TECHNIQUE: Breast tomosynthesis in addition to standard 2D mammography was performed. Current study was also evaluated with a Computer Aided Detection (CAD) system. COMPARISON: Comparison is made to exams dated: 06/05/2016 mammogram, 06/02/2015 mammogram, 02/22/2015 mammogram, 06/01/2014 mammogram, 05/25/2013 mammogram, and 05/20/2012 mammogram - [facility]. BREAST COMPOSITION: The tissue of both breasts is extremely dense, which lowers the sensitivity of m ammography. FINDINGS: No suspicious masses, calcifications, or areas of architectural distortion are noted in ei ther breast. There has been no significant interval change compared to prior exams. IMPRESSION: ACR BI-RADS CATEGORY 1: NEGATIVE There is no mammographic evidence of malignancy. A 1 year screening mammogram is recommended. The pa tient will receive written notification of the results. Approximately 10% of breast cancers are not detected with mammography. A negative mammographic report should not delay biopsy if a clinically suggestive mass is present. Maria Elena Ponce M.D. /:06/06/2017 16:22:26 Senior Marketing Associate: Marita PHOENIX(Lauren)(Aguilar)(ROSAURA), [facility] letter sent: Normal 1/2 BI-RADS Code: ACR BI-RADS Category 1: Negative
== END | disposition home or self-care (01) ==
LOC: C.MAMM 13:09
PROVIDERS: ATTEND Obstetrics & Gynecology
DX: Z12.31 Encounter for screening mammogram for malignant neoplasm of breast (principal)

== ENCOUNTER 2017-07-23 13:52 | Emergency (ER) | payer BC ==
[2017-07-23 13:57] VITALS: TEMP 36.6
--- NOTE | 2017-07-23 15:11 | DIAGNOSTIC IMAGING REPORT ---
L-SPINE MIN 4 VIEWS ROUTINE CLINICAL HISTORY: Low back pain status post trauma COMPARISON STUDY: 08/19/2014 FINDINGS: No fractures or dislocations are visualized. The disc space heights remain relatively well preserved for age. IMPRESSION: No fractures or dislocations identified. Electronically signed by: Travis Montanez M.D. 07/23/2017 3:09 PM Dictated Date/Time: 07/23/2017 3:09 PM
--- NOTE | 2017-07-23 15:12 | DIAGNOSTIC IMAGING REPORT ---
SACRUM ONLY CLINICAL HISTORY: Lower back/sacral pain status post trauma COMPARISON STUDY: 08/19/2014 FINDINGS: No fractures are visualized. The previously identified IUD is no longer visualized. IMPRESSION: No fractures identified. Electronically signed by: Travis Montanez M.D. 07/23/2017 3:10 PM Dictated Date/Time: 07/23/2017 3:10 PM
[2017-07-23] MEDS ORDERED: TRAM-10 PO (15:23)
[2017-07-23 15:24] VITALS: BP 110/63; PULSE 52; O2SAT 99
--- NOTE | 2017-07-23 16:01 | EMERGENCY ROOM VISIT NOTE ---
ED Visit Note First contact with patient: 14:01 Chief Complaint: I was shoveling and hurt my lower back. History of Present Illness: Ms. Palencia is a 47-year-old [place] female who is brought into the ED via wheelchair accompanied by her complaining of lumbar and sacral back pain. Patient reports approximately one hour ago she was shoveling snow off her driveway. She reports she was picking up a large amount is still and twisted at the waist and used a large effort to throw the snow off to the side of the driveway. When she did that motion she reports she had acute onset of lower back pain. Since that time her pain has been constant. Currently she describes a constant sharp pain over the L4 to S1 area and in the sacroiliac joint area. She rates her discomfort 6/10. Her pain is radiating into her buttocks but not her legs. Her pain worsens with all movement of the lumbar spine. She has not identified any alleviating factors related to the pain. She has not taken any medications for pain prior to arrival at the hospital. Patient denies any previous significant back disease or surgeries. Additionally patient denies fevers, chills, sweats, skin eruptions, skin color changes, abdominal pain, nausea, vomiting, diarrhea, constipation, rectal bleeding, black/tarry stools, urinary symptoms, hematuria, vaginal bleeding, vaginal discharge, genital/rectal paresthesias, bowel and bladder dysfunction, lower extremity weakness/numbness/tingling. Review of Systems: As noted above in history of present illness. 8 body systems were reviewed and found to be negative as noted above. Past Medical History: Patient denies. Current Medications: Patient denies. Allergies to Medications: Patient denies. Social History: Patient lives with her and feels safe in her home environment; she denies tobacco use. Physical Examination: Vital Signs: Date Time Temp Pulse Resp B/P (MAP) Pulse Ox O2 Delivery O2 Flow Rate FiO2 07/23/17 15:24 52 16 110/63 99 Room Air 07/23/17 13:57 36.6 62 20 126/76 100 Room Air GENERAL: 47-year-old female in mild to moderate distress due to pain, nontoxic- appearing, afebrile and hemodynamically stable. NEUROLOGICAL: Awake, alert and oriented to person, place and time. Answering questions appropriately and following commands. Normal gait. Good hand eye coordination. No focal motor or sensory deficits. SKIN: Warm, dry and pink. No soft tissue eruptions or trauma noted. HEENT: Atraumatic and normocephalic. BACK: No tenderness over the bony cervical, thoracic or lumbar spines. No gross bony deformity, step-offs, swelling or ecchymosis. Mild tenderness in the L5-S1 paraspinous muscles. Mild tenderness over the sacroiliac joints without bony deformity, bony crepitus, swelling or ecchymosis. Difficult to perform a straight leg raise examination due to patient's discomfort. No CVA tenderness. THORAX: Lungs sounds are clear to auscultation and equal bilaterally with symmetrical chest wall. ABDOMEN: Flat, soft and nontender. Positive bowel sounds in all quadrants. No guarding, rigidity or organomegaly. EXTREMITIES: Moves all extremities well on command and with purpose. All distal neurovascular statuses are intact and equal bilaterally. No calf tenderness or cords. 5/5 muscle strength in all movements of the hips, knees, ankles. She was able to distinguish light sensations through all dermatomes of the lower legs and feet. Patellar and Achilles deep tendon reflexes are +2 and equal bilaterally. ED Course: Patient is assessed as noted above. Patient's medication list was reviewed. Lumbar Spine X-Rays: Were read by myself and the radiologist and shows no acute fractures or subluxations. Disc heights are well maintained. Sacrum Spine X-Rays: Were read by myself and the radiologist and shows no acute fractures. Patient was educated about today's findings and instructed on her treatment plan ; she verbalized understanding and agreement with this plan. Clinical Impression: Muscle strain of the lumbar region. Disposition: Patient discharged home in stable condition accompanied by her ; prior to departure she was reassessed and subjectively reported she was feeling the same. Plan: Comfort measures were discussed with the patient including rest, proper lifting and moving techniques, ice and a sliding pain medication scale of ibuprofen, acetaminophen and/or Ultram; she was given appropriate narcotic precautions and the state database was checked and no red flags were noted. Patient was encouraged to follow-up with her primary care provider for recheck if no better in 3-4 days. Patient is encouraged return ED for worsening pain, radiation of her pain down her legs, numbness and tingling in her rectal or genital areas, lower extremity weakness/numbness/tingling or any new/concerning symptoms.
== END 2017-07-23 15:28 | disposition home or self-care (01) ==
LOC: C.EDB 13:57 → C.EDD 15:28
DX: S39.012A Strain of muscle, fascia and tendon of lower back, initial encounter (principal); X50.0XXA Overexertion from strenuous movement or load, initial encounter; Y93.H1 Activity, digging, shoveling and raking; Y92.014 Private driveway to single-family (private) house as the place of occurrence of the external cause